=== PATIENT | female | born 1995 | race Caucasian/White ===

== ENCOUNTER 2021-03-08 19:15 | Emergency (ER) | payer OTHER ==
[~2021-03-08] VITALS: Ht 162.6 cm; Wt 68.0 kg
== END 2021-03-08 21:32 | disposition left against medical advice (07) ==
LOC: ED 19:15
DX: R10.10 Upper abdominal pain, unspecified (principal); R10.30 Lower abdominal pain, unspecified
CPT/HCPCS: 80053; 80500; 81001; 83690; 84703; 85025; 99283

== ENCOUNTER 2022-01-14 15:42 | Emergency (ER) | payer OTHER ==
[~2022-01-14] VITALS: Ht 162.6 cm; Wt 68.0 kg
== END 2022-01-14 17:50 | disposition left against medical advice (07) ==
LOC: ED 15:42
DX: T42.4X2A Poisoning by benzodiazepines, intentional self-harm, initial encounter (principal); T40.412A Poisoning by fentanyl or fentanyl analogs, intentional self-harm, initial encounter; Z53.29 Procedure and treatment not carried out because of patient's decision for other reasons; Z88.5 Allergy status to narcotic agent
CPT/HCPCS: 36415; 80053; 84703; 85025; 99285; J7030